=== PATIENT | female | born 1960 | race American Indian/Alaskan Native ===

== ENCOUNTER 2018-01-20 16:29 | Emergency (ER) | payer OTHER ==
[2018-01-20 16:42] VITALS: BP 176/86
[2018-01-20] MEDS ORDERED: DECADRON IM ONE (21:31)
--- NOTE | 2018-01-20 21:31 | Emergency Department Report ---
ED General Adult HPI - General Chief complaint: Upper Respiratory Infection Stated complaint: POSSIBLE SINUS INFECTION, ARM SHOULDER PAIN Time Seen by Provider: 01/20/18 20:39 Source: patient Mode of arrival: Ambulatory Limitations: No Limitations - History of Present Illness Initial comments: This is a 57-year-old female here reports that she's been having right elbow pain that is radiating into her right forearm and right arm up to her right shoulder and right upper back. She said this is been ongoing but started again 3 days ago after lifting. She denies any swelling or deformity. Heart denies any redness. Reports pain is 10 out of 10 with numbness and tingling. Pain is achy. She says she took some Advil but it didn't help pain. She is also complaining of sinus drainage since given worse over 2 days but she reports that she's been having this for over a week. She did not take any medication for this. Denies any cough or shortness of breath. Denies any chest pain. Patient has a history of high blood pressure and she says she doesn't always take her medication as prescribed. Patient requested a refill on her hydrochlorothiazide. She is here to be evaluated for multiple complaints. MD Complaint: medication refill, right elbow pain with radiation, sinus problems Onset/Timin -: days(s) Location: upper extremity (right elbow) Radiation: back, proximal, distal Severity scale (0 -10): 10 Quality: aching, sharp Consistency: constant Improves with: none Worsens with: movement Associated Symptoms: other (nasal congestion with sinus drainage. Medication refill). denies: confusion, chest pain, cough, diaphoresis, fever/chills, headaches, nausea/vomiting, rash, seizure, shortness of breath, syncope, weakness Treatments Prior to Arrival: NSAID - Related Data Previous Rx's Medication Instructions Recorded Last Taken Type Famotidine [Pepcid] 20 mg PO DAILY #30 tablet 09/16/13 Unknown Rx Fluconazole [Diflucan TAB] 150 mg PO ONCE #150 mg 09/16/13 Unknown Rx metroNIDAZOLE [Flagyl TAB] 2,000 mg PO ONCE #4 tablet 09/16/13 Unknown Rx Azithromycin [Zithromax Z-JIM] 250 mg PO DAILY #6 tab 06/12/15 Unknown Rx guaiFENesin/CODEINE [Robitussin AC] 5 ml PO Q6H PRN #100 oral.liqd 06/12/15 Unknown Rx Albuterol Sulfate [Ventolin HFA] 2 puff IH Q4H PRN #1 hfa.aer.ad 03/20/16 Unknown Rx Benzonatate [Tessalon Perles] 100 mg PO Q8HR PRN #30 capsule 03/20/16 Unknown Rx Ibuprofen [Motrin] 600 mg PO Q8H PRN #30 tablet 03/20/16 Unknown Rx Lisinopril [Zestril TAB] 20 mg PO QDAY #30 tablet 03/20/16 Unknown Rx Prednisone [predniSONE 10 mg 10 mg PO .TAPER #1 tab.ds.pk 03/20/16 Unknown Rx (6-Day Pack, 21 Tabs)] amLODIPine [Norvasc] 10 mg PO DAILY #30 tablet 03/20/16 Unknown Rx Azithromycin [Zithromax Z-JIM] 250 mg PO DAILY 5 Days #6 tab 01/20/18 Unknown Rx Cetirizine HCl [ZyrTEC] 10 mg PO QAM 14 Days #14 capsule 01/20/18 Unknown Rx Fluticasone [Flonase] 1 spray NS QDAY 14 Days #1 bottle 01/20/18 Unknown Rx Hydrochlorothiazide [HCTZ] 25 mg PO QDAY 30 Days #30 tablet 01/20/18 Unknown Rx traMADol [Ultram] 50 mg PO Q6HR PRN #12 tablet 01/20/18 Unknown Rx Allergies Allergy/AdvReac Type Severity Reaction Status Date / Time No Known Allergies Allergy Verified 09/16/13 02:04 ED Review of Systems ROS: Stated complaint: POSSIBLE SINUS INFECTION, ARM SHOULDER PAIN Other details as noted in HPI Constitutional: denies: chills, fever Eyes: denies: eye pain, eye discharge, vision change ENT: congestion. denies: ear pain, throat pain, hearing loss Respiratory: denies: cough, shortness of breath, SOB with exertion, SOB at rest , stridor, wheezing Cardiovascular: denies: chest pain, palpitations, dyspnea on exertion, edema, syncope Gastrointestinal: denies: abdominal pain, nausea, vomiting Genitourinary: denies: dysuria Musculoskeletal: arthralgia. denies: back pain, joint swelling Skin: denies: rash, lesions Neurological: numbness, paresthesias. denies: headache, weakness, abnormal gait , vertigo Psychiatric: denies: anxiety, depression Hematological/Lymphatic: denies: easy bleeding, easy bruising ED Past Medical Hx - Past Medical History Previous Medical History?: Yes Hx Hypertension: Yes - Surgical History Past Surgical History?: Yes Additional Surgical History: fibroids removed - Family History Family history: hypertension - Social History Smoking Status: Current Every Day Smoker Substance Use Type: Alcohol - Medications Home Medications: Home Medications Medication Instructions Recorded Confirmed Last Taken Type Famotidine [Pepcid] 20 mg PO DAILY #30 tablet 09/16/13 Unknown Rx Fluconazole [Diflucan TAB] 150 mg PO ONCE #150 mg 09/16/13 Unknown Rx metroNIDAZOLE [Flagyl TAB] 2,000 mg PO ONCE #4 tablet 09/16/13 Unknown Rx Azithromycin [Zithromax Z-JIM] 250 mg PO DAILY #6 tab 06/12/15 Unknown Rx guaiFENesin/CODEINE [Robitussin AC] 5 ml PO Q6H PRN #100 oral.liqd 06/12/15 Unknown Rx Albuterol Sulfate [Ventolin HFA] 2 puff IH Q4H PRN #1 hfa.aer.ad 03/20/16 Unknown Rx Benzonatate [Tessalon Perles] 100 mg PO Q8HR PRN #30 capsule 03/20/16 Unknown Rx Ibuprofen [Motrin] 600 mg PO Q8H PRN #30 tablet 03/20/16 Unknown Rx Lisinopril [Zestril TAB] 20 mg PO QDAY #30 tablet 03/20/16 Unknown Rx Prednisone [predniSONE 10 mg 10 mg PO .TAPER #1 tab.ds.pk 03/20/16 Unknown Rx (6-Day Pack, 21 Tabs)] amLODIPine [Norvasc] 10 mg PO DAILY #30 tablet 03/20/16 Unknown Rx Azithromycin [Zithromax Z-JIM] 250 mg PO DAILY 5 Days #6 tab 01/20/18 Unknown Rx Cetirizine HCl [ZyrTEC] 10 mg PO QAM 14 Days #14 capsule 01/20/18 Unknown Rx Fluticasone [Flonase] 1 spray NS QDAY 14 Days #1 bottle 01/20/18 Unknown Rx Hydrochlorothiazide [HCTZ] 25 mg PO QDAY 30 Days #30 tablet 01/20/18 Unknown Rx traMADol [Ultram] 50 mg PO Q6HR PRN #12 tablet 01/20/18 Unknown Rx ED Physical Exam - General Limitations: No Limitations General appearance: alert, in no apparent distress - Head Head exam: Present: atraumatic, normocephalic, normal inspection - Eye Eye exam: Present: normal appearance, PERRL, EOMI Pupils: Present: normal accommodation - ENT ENT exam: Present: normal orophraynx, mucous membranes moist, normal external ear exam, other (bilateral nasal mucosa congested with erythema and clear drainage. Mouth or sinus tenderness to palpate.). Absent: TM's normal bilaterally (bilateral TM congested without any erythema) - Neck Neck exam: Present: normal inspection, full ROM, other (no C-spine tenderness). Absent: tenderness, lymphadenopathy - Respiratory Respiratory exam: Present: normal lung sounds bilaterally. Absent: respiratory distress, chest wall tenderness - Cardiovascular Cardiovascular Exam: Present: regular rate, normal rhythm, normal heart sounds. Absent: systolic murmur, diastolic murmur - GI/Abdominal GI/Abdominal exam: Present: soft, normal bowel sounds. Absent: distended, tenderness, guarding, rebound, rigid - Extremities Exam Extremities exam: Present: normal inspection, full ROM, normal capillary refill , other (no clubbing, cyanosis or edema.The plus lower extremities. Patient has no joint effusion, crepitus or deformity. Full range of motion to both elbows but reports pain to right elbow with flexion and extension. No pain with supination or pronation bilateral upper extremity. No laceration click, contusion or abrasion noted to extremities. +5 strength in all extremities. No neurovascular compromise). Absent: tenderness, pedal edema, joint swelling, calf tenderness - Back Exam Back exam: Present: normal inspection, full ROM, CVA tenderness (L), other ( ambulate without any difficulties). 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 Absent: motor sensory deficit - Psychiatric Psychiatric exam: Present: normal affect, normal mood - Skin Skin exam: Present: warm, dry, intact, normal color. Absent: rash ED Course Vital Signs 07/11/18 07/11/18 16:35 23:40 Temperature 98.1 F Pulse Rate 90 89 Respiratory 18 16 Rate Blood Pressure 176/86 O2 Sat by Pulse 95 97 Oximetry - Reevaluation(s) Reevaluation #1: 01/20/18 21:36 Patient received Toradol 60 mg IM and Decadron 10 mg IM for pain to right elbow does radiate into right forearm and up right arm to posterior right thorax. She is stable. EKG ordered Reevaluation #2: 01/20/18 23:18 Patient voiced relief of her pain upon reevaluation is that she feels much better. ED Medical Decision Making - EKG Data -: EKG Interpreted by Me (by attending physician) EKG shows normal: sinus rhythm Rate: normal (at 70 bpm) - EKG Data Interpretation: no acute changes, normal EKG - Medical Decision Making This is a 57-year-old female here reports that she's been having right elbow pain that is radiating into her right forearm and right arm up to her right shoulder and right upper back. She said this is been ongoing but started again 3 days ago after lifting. . Reports pain is 10 out of 10 with numbness and tingling. Patient is also complaining of sinus problems and requesting refill on hydrochlorothiazide for elevated blood pressure. She was seen and examined by myself. Her physical exam shows she has tenderness to Maxillary sinuses with nasal mucosa erythema and congested with clear drainage and bilateral TM congested. She has full range of motion to all extremities with normal extremity exam. back exam is normal. Patient is neurologically intact. EKG shows normal sinus rhythm at 70 bpm. Vital signs are stable except for mild elevation in blood pressure and she is a febrile. I discussed the patient and her diagnosis and treatment plan and she is in agreement. She was given Decadron and Toradol IM in emergency room which relieved her pain. A/P 1:arthralgia right elbow-Toradol 60 mg IM 1 initially for pain and she'll be discharged home on Ultram. Will refer to orthopedic 2_acute sinusitis-patient given Decadron 10 mg IM and discharged home with prescription for Zofran ,Flonase and Z-Jim. 3: hypertension-refilled hydrochlorothiazide. Referral to primary care 4: Numbness and tingling right upper extremity-resolved after Decadron and will refer to neurology Patient educated on diagnosis, treatment plan, EKG findings, medication. She voiced understanding Multiple referral neurology, primary care and orthopedic doctor. Patient discharged home in stable condition. Vital signs are stable and she is nontoxic in appearance. Patient says she is feeling better and her pain has been resolved. She has no numbness or team went to her upper extremity at present. I discussed with her for symptoms worsen or return to return to the emergency room if worse follow-up with primary care to manage hypertension and follow-up sinusitis, neurology to manage numbness or tingling to right upper extremity and orthopedic doctor for right elbow pain. She voiced understanding and discharged home in stable condition with prescription for Zyrtec, Flonase, Z -Jim, hydrochlorothiazide and tramadol Critical care attestation.: If time is entered above; I have spent that time in minutes in the direct care of this critically ill patient, excluding procedure time. ED Disposition Clinical Impression: Numbness and tingling of right upper extremity, Arthralgia of right elbow, Medication refill Sinusitis Qualifiers: Sinusitis location: unspecified location Chronicity: acute Recurrence: not specified as recurrent Qualified Code(s): J01.90 - Acute sinusitis, unspecified Disposition: DC-01 TO HOME OR SELFCARE Is pt being admited?: No Does the pt Need Aspirin: No Condition: Stable Instructions: Sinusitis (ED), Paresthesia (ED), DASH Eating Plan (ED), Low Sodium Diet (ED), Hypertension (ED), Arthralgia (ED) Additional Instructions: Flush nostrils out with saline nasal wash See referral for orthopedic doctor and neurologist regarding elbow pain and also numbness and tingling to right upper extremity Take antibiotic, Zyrtec and Flonase for sinus infection If symptoms worsens, please return to emergency room Take Ultram for pain but is in a drive or operate heavy machinery while taking this medication as it causes drowsiness SEE refill for hydrochlorothiazide See multiple referral to primary care doctor Prescriptions: Azithromycin [Zithromax Z-JIM] 250 mg PO DAILY 5 Days #6 tab Cetirizine HCl [ZyrTEC] 10 mg PO QAM 14 Days #14 capsule Fluticasone [Flonase] 1 spray NS QDAY 14 Days #1 bottle Hydrochlorothiazide [HCTZ] 25 mg PO QDAY 30 Days #30 tablet traMADol [Ultram] 50 mg PO Q6HR PRN #12 tablet PRN Reason: Pain Referrals: ANNETTE VIRK MD [Staff Physician] - 01/22/18 MICH CHISHOLM MD [Staff Physician] - 01/22/18 [facility] [Outside] - 01/22/18 JAYDE MOSCOSO MD [Staff Physician] - 01/22/18 Forms: Work/School Release Form(ED)
[2018-01-20] MEDS ORDERED: TORADOL IM ONE (21:32)
== END 2018-01-20 23:40 | disposition home or self-care (01) ==
LOC: ED 16:29
DX: M25.521 Pain in right elbow (principal); J01.90 Acute sinusitis, unspecified; R20.0 Anesthesia of skin; I10 Essential (primary) hypertension; F17.200 Nicotine dependence, unspecified, uncomplicated
CPT/HCPCS: 93005; 93010; 96372; 99282; J1100; J1885

== ENCOUNTER 2019-03-09 17:29 | Emergency (ER) | payer SELFPAY ==
--- NOTE | 2019-03-09 18:15 | Event Note ---
ED Screening Note Date of service: 03/09/19 Time: 18:13 ED Screening Note: 58 y o female with PMH of HTN on meds presents to ED cc of chest pain and sob x 3 day This initial assessment/diagnostic orders/clinical plan/treatment(s) is/are subject to change based on patients health status, clinical progression and re- assessment by fellow clinical providers in the ED. Further treatment and workup at subsequent clinical providers discretion. Patient/guardian urged not to elope from the ED as their condition may be serious if not clinically assessed and managed. Initial orders include: labs ekg cxr
[2019-03-09 18:16] VITALS: BP 156/87
[2019-03-09 19:04] LABS: Basophils % (Auto) 0.5 % (0.0-1.8); Eosinophils # (Auto) 0.1 K/mm3 (0.0-0.4); Eosinophils % (Auto) 0.7 % (0.0-4.3); Hematocrit 40.4 % (30.3-42.9); Hemoglobin 13.1 gm/dl (10.1-14.3); Lymphocytes # (Auto) 2.9 K/mm3 (1.2-5.4); Lymphocytes % (Auto) 39.7 % (13.4-35.0); Mean Corpuscular HGB Conc 32 % (30-34); Mean Corpuscular Volume 72 fl (79-97); Monocytes # (Auto) 0.5 K/mm3 (0.0-0.8); Platelet Count 260 K/mm3 (140-440); Red Blood Count 5.61 M/mm3 (3.65-5.03); Red Cell Distribution Width 15.9 % (13.2-15.2)
--- NOTE | 2019-03-09 19:26 | XRay Report ---
CHEST 2 VIEWS INDICATION / CLINICAL INFORMATION: Chest Pain. COMPARISON: 03/19/2016 FINDINGS: SUPPORT DEVICES: None. HEART / MEDIASTINUM: No significant abnormality. LUNGS / PLEURA: No significant pulmonary or pleural abnormality. No pneumothorax. ADDITIONAL FINDINGS: No significant additional findings. IMPRESSION: 1. No acute findings. Signer Name: Zhang Real MD Signed: 03/09/2019 7:21 PM Workstation Name: [id number]
[2019-03-09 19:28] LABS: BUN/Creatinine Ratio 24; Blood Urea Nitrogen 19 mg/dL (7-17); Calcium 10.2 mg/dL (8.4-10.2); Hemolysis Index 6
--- NOTE | 2019-03-09 21:16 | Emergency Department Report ---
ED Chest Pain HPI - General Chief Complaint: Chest Pain Stated Complaint: CHEST/ABD PAIN Time Seen by Provider: 03/09/19 18:12 Source: patient Mode of arrival: Ambulatory Limitations: No Limitations - History of Present Illness Initial Comments: 58-year-old -[place] female presents to the emergency room stating she's had had a 3 day history of having shortness of breath with this chest pain and epigastric pain. Patient reports that [id number] medicines not helping. Patient reports that the epigastric pain is sharp and worse after she eaten spaghetti. Patient reports that the chest pain is reproducible. Patient denies any nausea. She complains of shortness of breath with exertion. Patient has been taking her amlodipine 10 mg twice a day and hydrochlorothiazide 25 mg twice a day not aware that she should only have been taken it once a day. Patient is followed by Dr. Valentine at [facility]. MD Complaint: chest pain - Related Data Previous Rx's Medication Instructions Recorded Last Taken Type Famotidine [Pepcid] 20 mg PO DAILY #30 tablet 09/16/13 Unknown Rx Fluconazole [Diflucan TAB] 150 mg PO ONCE #150 mg 09/16/13 Unknown Rx metroNIDAZOLE [Flagyl TAB] 2,000 mg PO ONCE #4 tablet 09/16/13 Unknown Rx Azithromycin [Zithromax Z-NATALIE] 250 mg PO DAILY #6 tab 06/12/15 Unknown Rx guaiFENesin/CODEINE [Robitussin AC] 5 ml PO Q6H PRN #100 oral.liqd 06/12/15 Unknown Rx Albuterol Sulfate [Ventolin HFA] 2 puff IH Q4H PRN #1 hfa.aer.ad 03/20/16 Unknown Rx Benzonatate [Tessalon Perles] 100 mg PO Q8HR PRN #30 capsule 03/20/16 Unknown Rx Ibuprofen [Motrin] 600 mg PO Q8H PRN #30 tablet 03/20/16 Unknown Rx Lisinopril [Zestril TAB] 20 mg PO QDAY #30 tablet 03/20/16 Unknown Rx Prednisone [predniSONE 10 mg 10 mg PO .TAPER #1 tab.ds.pk 03/20/16 Unknown Rx (6-Day Pack, 21 Tabs)] amLODIPine [Norvasc] 10 mg PO DAILY #30 tablet 03/20/16 Unknown Rx Azithromycin [Zithromax Z-NATALIE] 250 mg PO DAILY 5 Days #6 tab 01/20/18 Unknown Rx Cetirizine HCl [ZyrTEC] 10 mg PO QAM 14 Days #14 capsule 01/20/18 Unknown Rx Fluticasone [Flonase] 1 spray NS QDAY 14 Days #1 bottle 01/20/18 Unknown Rx hydroCHLOROthiazide [HCTZ] 25 mg PO QDAY 30 Days #30 tablet 01/20/18 Unknown Rx traMADol [Ultram] 50 mg PO Q6HR PRN #12 tablet 01/20/18 Unknown Rx Allergies Allergy/AdvReac Type Severity Reaction Status Date / Time No Known Allergies Allergy Verified 09/16/13 02:04 Heart Score - HEART Score History: Slightly suspicious EKG: Non-specific Age: 45-65 Risk factors: 1-2 risk factors Troponin: < normal limit HEART Score: 3 ED Review of Systems ROS: Stated complaint: CHEST/ABD PAIN Other details as noted in HPI ED Past Medical Hx - Past Medical History Previous Medical History?: Yes Hx Hypertension: Yes - Surgical History Past Surgical History?: Yes Additional Surgical History: fibroids removed - Social History Smoking Status: Current Every Day Smoker Substance Use Type: Alcohol - Medications Home Medications: Home Medications Medication Instructions Recorded Confirmed Last Taken Type Famotidine [Pepcid] 20 mg PO DAILY #30 tablet 09/16/13 Unknown Rx Fluconazole [Diflucan TAB] 150 mg PO ONCE #150 mg 09/16/13 Unknown Rx metroNIDAZOLE [Flagyl TAB] 2,000 mg PO ONCE #4 tablet 09/16/13 Unknown Rx Azithromycin [Zithromax Z-NATALIE] 250 mg PO DAILY #6 tab 06/12/15 Unknown Rx guaiFENesin/CODEINE [Robitussin AC] 5 ml PO Q6H PRN #100 oral.liqd 06/12/15 Unknown Rx Albuterol Sulfate [Ventolin HFA] 2 puff IH Q4H PRN #1 hfa.aer.ad 03/20/16 Unknown Rx Benzonatate [Tessalon Perles] 100 mg PO Q8HR PRN #30 capsule 03/20/16 Unknown Rx Ibuprofen [Motrin] 600 mg PO Q8H PRN #30 tablet 03/20/16 Unknown Rx Lisinopril [Zestril TAB] 20 mg PO QDAY #30 tablet 03/20/16 Unknown Rx Prednisone [predniSONE 10 mg 10 mg PO .TAPER #1 tab.ds.pk 03/20/16 Unknown Rx (6-Day Pack, 21 Tabs)] amLODIPine [Norvasc] 10 mg PO DAILY #30 tablet 03/20/16 Unknown Rx Azithromycin [Zithromax Z-NATALIE] 250 mg PO DAILY 5 Days #6 tab 01/20/18 Unknown Rx Cetirizine HCl [ZyrTEC] 10 mg PO QAM 14 Days #14 capsule 01/20/18 Unknown Rx Fluticasone [Flonase] 1 spray NS QDAY 14 Days #1 bottle 01/20/18 Unknown Rx hydroCHLOROthiazide [HCTZ] 25 mg PO QDAY 30 Days #30 tablet 01/20/18 Unknown Rx traMADol [Ultram] 50 mg PO Q6HR PRN #12 tablet 01/20/18 Unknown Rx ED Physical Exam - General Limitations: No Limitations General appearance: alert, in no apparent distress - ENT ENT exam: Present: mucous membranes moist - Respiratory Respiratory exam: Present: normal lung sounds bilaterally, chest wall tenderness - Cardiovascular Cardiovascular Exam: Present: regular rate, normal rhythm. Absent: systolic murmur, diastolic murmur, rubs, gallop - GI/Abdominal GI/Abdominal exam: Present: soft, normal bowel sounds - Extremities Exam Extremities exam: Present: normal inspection, full ROM. Absent: pedal edema, joint swelling - Back Exam Back exam: Present: normal inspection - Neurological Exam Neurological exam: Present: alert, oriented X3 - Psychiatric Psychiatric exam: Present: normal affect, normal mood - Skin Skin exam: Present: warm, dry, intact, normal color. Absent: rash ED Course Vital Signs 03/09/19 18:14 Temperature 98.2 F Pulse Rate 77 Respiratory 18 Rate Blood Pressure 156/87 O2 Sat by Pulse 96 Oximetry PHILIP score - Philip Score Age > 65: (0) No Aspirin use within the Past 7 Days: (0) No 3 or more CAD Risk Factors: (0) No 2 or more Angina events in past 24 hrs: (0) No Known CAD with more than 50% Stenosis: (0) No Elevated Cardiac Markers: (0) No ST Deviation Greater than 0.5mm: (0) No PHILIP Score: 0 ED Medical Decision Making - Lab Data Result diagrams: 03/09/19 18:48 03/09/19 18:48 - Radiology Data Radiology results: report reviewed Patient: DANIA CONNOLLY MR#: [id number] : 1960 Acct:[id number] Age/Sex: 58 / F ADM Date: 03/09/19 Loc: ED Attending Dr: Ordering Physician: EDUARD DUMONT Date of Service: 03/09/19 Procedure(s): XR chest routine 2V Accession Number(s): [id number] cc: EDUARD DUMONT Fluoro Time In Minutes: CHEST 2 VIEWS INDICATION / CLINICAL INFORMATION: Chest Pain. COMPARISON: 03/19/2016 FINDINGS: SUPPORT DEVICES: None. HEART / MEDIASTINUM: No significant abnormality. LUNGS / PLEURA: No significant pulmonary or pleural abnormality. No pneumothorax. ADDITIONAL FINDINGS: No significant additional findings. IMPRESSION: 1. No acute findings. Signer Name: Zhang Real MD Signed: 03/09/2019 7:21 PM Workstation Name: [id number] Transcribed By: JM Dictated By: Zhang Real MD Electronically Authenticated By: Zhang Real MD Signed Date/Time: 03/09/191920 DD/ 20 TD/TT: Patient: DANIA CONNOLLY MR#: [id number] : 1960 Acct:[id number] Age/Sex: 58 / F ADM Date: 03/09/19 Loc: ED Attending Dr: Ordering Physician: EDUARD GRAVES Date of Service: 03/09/19 Procedure(s): US abdomen limited Accession Number(s): [id number] cc: EDUARD GRAVES ULTRASOUND ABDOMEN, LIMITED (RIGHT UPPER QUADRANT) INDICATION: RUQ pain. COMPARISON: None available. FINDINGS: Pancreas: Visualized portion shows no significant abnormality. Liver: Increased echogenicity. Negative for focal lesion. Gallbladder: Contracted gallbladder. Negative for gallstones or adjacent fluid. Bile ducts: Normal. Common Bile Duct measures 1 mm. Free fluid: None. Additional Findings: None. IMPRESSION: 1. Fatty liver. 2. Contracted gallbladder. Signer Name: Boby Gaitan MD Signed: 03/10/2019 2:05 AM Workstation Name: [id number] Transcribed By: ES Dictated By: Boby Gaitan MD Electronically Authenticated By: Boby Gaitan MD Signed Date/Time: 03/10/19204 DD/ 3 TD/TT: - Medical Decision Making 58-year-old -[place] female presents to the emergency room stating she's had had a 3 day history of having shortness of breath with this chest pain and epigastric pain. Patient reports that [id number] medicines not helping. Patient reports that the epigastric pain is sharp and worse after she eaten spaghetti. Patient reports that the chest pain is reproducible. Patient denies any nausea. She complains of shortness of breath with exertion. Patient has been taking her amlodipine 10 mg twice a day and hydrochlorothiazide 25 mg twice a day not aware that she should only have been taken it once a day. Patient is followed by Dr. Valentine at [facility]. Critical care attestation.: If time is entered above; I have spent that time in minutes in the direct care of this critically ill patient, excluding procedure time. ED Disposition Clinical Impression: Atypical chest pain Disposition: DC-01 TO HOME OR SELFCARE Is pt being admited?: No Does the pt Need Aspirin: No Condition: Stable Instructions: Chest Pain (ED) Additional Instructions: She will Chest x-ray and ultrasound is negative for any acute abnormalities. Cardiac workup is negative for any acute cardial abnormalities. I highly recommend he do follow up with her primary care provider in the next 24-48 hours. Also recommended she take her medications as prescribed on the bottle. Increase her fluid intake eventually diet as tolerated.
[2019-03-09] MEDS ORDERED: K-DUR PO ONE (22:18)
--- NOTE | 2019-03-10 02:09 | Ultrasound Report ---
ULTRASOUND ABDOMEN, LIMITED (RIGHT UPPER QUADRANT) INDICATION: RUQ pain. COMPARISON: None available. FINDINGS: Pancreas: Visualized portion shows no significant abnormality. Liver: Increased echogenicity. Negative for focal lesion. Gallbladder: Contracted gallbladder. Negative for gallstones or adjacent fluid. Bile ducts: Normal. Common Bile Duct measures 1 mm. Free fluid: None. Additional Findings: None. IMPRESSION: 1. Fatty liver. 2. Contracted gallbladder. Signer Name: Boby Gaitan MD Signed: 03/10/2019 2:05 AM Workstation Name: [id number]
== END 2019-03-10 02:30 | disposition home or self-care (01) ==
LOC: ED 17:29
DX: R07.89 Other chest pain (principal); R10.13 Epigastric pain; R06.02 Shortness of breath; F17.200 Nicotine dependence, unspecified, uncomplicated; I10 Essential (primary) hypertension
CPT/HCPCS: 36415; 71046; 76705; 80048; 84484; 85025; 93005; 93010